=== PATIENT | female | born 1945 | race Caucasian/White ===

== ENCOUNTER → 2017-10-01 | Outpatient (CLI) | payer MEDICARE, OTHER ==
[2013-12-22 08:48] VITALS: BMI 30.9
[~2017-10-01] MED LIST: ALPR-448 PO; AMOX-559 PO; CHOL100059 PO; CHOL4PAC14 PO; CYC10 PO; DOCU-202 PO; FLU45SYR17 IM; HYDR-385 PO; HYDR-4309 PO; IBU600 PO; LOR5 PO; PER PO; PNEI IM; PNEU0.5D3 IM; VARI50KI IM; ZOST19404 SQ
[2017-10-01 11:33] LABS: PLATELET COUNT, AUTOMATED 236 K/uL (150-450)
[2017-10-01 11:40] LABS: LDL CHOLESTEROL 120 mg/dl
== END ==
LOC: LAB 10:49
PROVIDERS: ATTEND Nurse Practitioner Family
DX: R53.83 Other fatigue (principal); R10.11 Right upper quadrant pain; E55.9 Vitamin D deficiency, unspecified; R73.01 Impaired fasting glucose; E78.00 Pure hypercholesterolemia, unspecified
CPT/HCPCS: 36415; 82040; 82150; 82247; 82306; 82310; 82374; 82435; 82465; 82565; 82947; 83036; 83690; 83718; 84075; 84132; 84155; 84295; 84443; 84450; 84460; 84478; 84520; 85025

== ENCOUNTER → 2017-11-05 | Outpatient (CLI) | payer MEDICARE, OTHER ==
[2013-12-22 08:48] VITALS: BMI 30.9
--- NOTE | 2017-11-05 13:52 | RADIOLOGY IMAGING REPORT ---
FACILITY: [facility] PATIENT NAME: Jackeline Pavon : 1945 MR: [id number] V: [id number] EXAM DATE: ORDERING PHYSICIAN: QIAN SEALS TECHNOLOGIST: [place] [facility] [place]eline Pav[place] : 1945 Visit/Account:[id number] Date of Sevice: 11/05/2017 THYROID Indication: Evaluate thyroid nodules. Comparison study: May 18, 2011. Procedure: There has been satisfactory grayscale ultrasonic evaluation of the thyroid gland. Findings: Right lobe: The right lobe has diffusely heterogeneous echotexture. It has lobulated surface contour . Finding a discrete mass is difficult to discern but it does appear that medially there is a 1.4 x 1.1 x 0.6 cm nodule. Left lobe: The left lobe also has diffusely heterogeneous echotexture. There are 2 nodular lesions t hat appear to have grown when compared to the previous study. The more lateral lesion measures 1.3 x 1.0 x 0.6 cm in size and the more medial lesion measures 1.6 x 0.9 x 1.0 cm in size. The larger les ion would be accessible to percutaneous FNA. IMPRESSION: 1. In the lower portion of the left lobe of the thyroid gland there has been growth of previously no deanne small nodules. In the medial aspect of the lower lobe there is a nodule that measures 1.6 x 0.9 x 1.0 cm in size. Report Dictated By: Rahul Stearns MD at 11/05/2017 1:44 PM Report E-Signed By: Rahul Stearns MD at 11/05/2017 1:48 PM WSN:[email or web address]
== END ==
LOC: US 02:42
PROVIDERS: ATTEND Nurse Practitioner Family
DX: E04.1 Nontoxic single thyroid nodule (principal)
CPT/HCPCS: 76536

== ENCOUNTER → 2017-11-15 | Outpatient (CLI) | payer MEDICARE, OTHER ==
[2013-12-22 08:48] VITALS: BMI 30.9
--- NOTE | 2017-11-16 07:54 | RADIOLOGY IMAGING REPORT ---
[place] [facility] [place] Jackeline Pavon : 1945 MR: [id number] V: [id number] EXAM DATE: ORDERING PHYSICIAN: QIAN SEALS TECHNOLOGIST: Location: [facility] Patient: Jackeline Pavon : 1945 Visit/Account:[id number] Date of Sevice: 11/15/2017 DEXA Scan Clinical history: Osteopenia. Comparison: DEXA scan from 08/07/1999. LUMBAR SPINE: The bone mineral density (BMD) measured from L1-L4 correlates with a Z-score 0.0 and a T-score of -0 .5 which is Normal as defined by the World Health Organization. The corresponding risk of fracture i n the lumbar spine is Not increased compared with a young adult reference population. This value has decreased by 8.8 % since the prior study. More than 5% change is considered significant. HIP: Bone mineral density (BMD) measured in the left femoral neck region correlates with a Z-score -0.5 an d a T-score of -1.4 which is osteopenia as defined by the World Health Organization. The correspon ding risk of fracture in the hip is increased compared with a young adult reference population. The t otal hip value has decreased by 17.1 % since the prior study. More than 5% change is considered sign ificant. Bone mineral density (BMD) measured in the Femoral Neck region measures 0.843 g/cm2. IMPRESSION: 1. Lumbar spine: Normal. There has been decrease in the bone mineral density since the previous exa m. 2. Left femoral neck region: Osteopenia. There has been decrease in the bone mineral density of the total hip since the previous exam. 3. Femoral Neck: Bone Mineral Density is 0.843 g/cm2 The next DEXA scan of this patient should include the following sites: L1-L4 and the left hip. FRAX? WHO Fracture Risk Assessment Tool link: <http://www.shef.ac.uk/FRAX/tool.jsp?locationValue=9> PLEASE NOTE: 1) The World Health Organization defines low BMD as follows: T-score Normal > -1 Osteopenia < -1 and > -2.5 Osteoporosis < -2.5 without fractures Established osteoporosis < -2.5 with fractures 2) In general, you may wish to consider: Diagnosis Treatment Follow-up DEXA Normal BMD Prevention 2-3 years Osteopenia Prevention/therapy 1-2 years Osteoporosis Therapy Yearly 3) Fracture risk estimated from the T-score is more accurate for vertebral fractures (often spontane ous) than for hip fractures. Report Dictated By: Paramjit Guadarrama at 11/16/2017 7:47 AM Report E-Signed By: Paramjit Guadarrama at 11/16/2017 7:50 AM WSN:[email or web address]
--- NOTE | 2017-11-16 11:20 | RADIOLOGY IMAGING REPORT ---
FACILITY: [facility] PATIENT NAME: ODESSA JACOBS : [id number] MR: [id number] V: [id number] EXAM DATE: [id number] ORDERING PHYSICIAN: QIAN SEALS TECHNOLOGIST: Estefania Wheeler PROCEDURE:BILATERAL DIGITAL SCREENING MAMMOGRAM WITH CAD ASSISTED INTERPRETATION & 3D TOMOSYNTHESIS COMPARISON:Prior mammograms 11/11/16, 10/30/15, 10/26/14. INDICATIONS:Screening FINDINGS: There is a small cluster of microcalcifications in the 6 o'clock position Right breast posterior depth. This cluster is not significantly changed compared to 2017 but more prominent than older mammograms and I would suggest further evaluation with magnification views. Otherwise, no dominant mass in either breast. No suspicious microcalcifications on the Left. DIAGNOSTIC CATEGORY 0--INCOMPLETE: NEED ADDITIONAL IMAGING EVALUATION. RECOMMENDATIONS: ADDITIONAL MAMMOGRAPHIC VIEWS REQUIRED: RIGHT BREAST. IMPRESSION: BIRADS 0: Incomplete. Recommend the patient return for Spot magnification views of the cluster of microcalcifications in the right breast 6 o'clock position in the CC and ML projections. Dictated by: Joe Howard M.D. on 11/16/2017 at 10:49 Transcribed by: JAX on 11/16/2017 at 10:58 Approved by: Joe Howard M.D. on 11/16/2017 at 11:19 [facility]
== END ==
LOC: MAMO 00:35
PROVIDERS: ATTEND Nurse Practitioner Family
DX: Z12.31 Encounter for screening mammogram for malignant neoplasm of breast (principal); M85.88 Other specified disorders of bone density and structure, other site; R92.1 Mammographic calcification found on diagnostic imaging of breast
CPT/HCPCS: 77063; 77067; 77080

== ENCOUNTER → 2017-12-08 | Outpatient (CLI) | payer MEDICARE, OTHER ==
[2013-12-22 08:48] VITALS: BMI 30.9
--- NOTE | 2017-12-09 15:03 | RADIOLOGY IMAGING REPORT ---
FACILITY: [facility] PATIENT NAME: ODESSA JACOBS : [id number] MR: [id number] V: [id number] EXAM DATE: [id number] ORDERING PHYSICIAN: QIAN SEALS TECHNOLOGIST: Reva Kate PROCEDURE:RIGHT DIGITAL DIAGNOSTIC MAMMOGRAM WITH CAD ASSISTED INTERPRETATION COMPARISON:Prior mammograms 11/15/17, 11/11/16, 11/07/15, 10/30/15, 10/26/14, 10/25/13, 08/30/12. INDICATIONS:FURTHER EVAL FINDINGS: Again noted is a small grouping of calcifications in the approximate 6 o'clock position of the Right breast. These appear relatively unchanged when compared to the 2017 mammograms. These do appear to be faintly visible on prior mammograms dating back to 2014 although seamed better advantage on the current examination. The difference in imaging technology between the non 3D breast Tomographic images and the current 3D breast Tomographic images may account for this difference. They appear to be in a loonier orientation and may be vascular in etiology. A 6 month follow-up diagnostic Right mammogram is recommended to evaluate for totally comparing the same imaging technology. DIAGNOSTIC CATEGORY 3--PROBABLY BENIGN FINDING. RECOMMENDATIONS: SIX MONTH FOLLOW-UP DIAGNOSTIC MAMMOGRAM: RIGHT BREAST. IMPRESSION: BIRADS 3: Probably benign finding. A 6 month follow-up Right mammogram is recommended as described above. Dictated by: Priscilla Garcia M.D. on 12/08/2017 at 11:10 Transcribed by: JAX on 12/08/2017 at 11:30 Approved by: Priscilla Garcia M.D. on 12/09/2017 at 15:01 [facility]
== END ==
LOC: MAMO 02:25
PROVIDERS: ATTEND Nurse Practitioner Family
DX: R92.2 Inconclusive mammogram (principal)
CPT/HCPCS: 77065

== ENCOUNTER → 2018-01-27 | Outpatient (CLI) | payer MEDICARE, OTHER ==
[2013-12-22 08:48] VITALS: BMI 30.9
--- NOTE | 2018-01-27 16:40 | RADIOLOGY IMAGING REPORT ---
FACILITY: [facility] PATIENT NAME: Jackeline Pavon : 1945 MR: [id number] V: [id number] EXAM DATE: ORDERING PHYSICIAN: QIAN SEALS TECHNOLOGIST: Location: [facility] [place] Patient: Jackeline Pavon : 1945 Visit/Account:[id number] Date of Sevice: 01/27/2018 Exam type: CERVICAL SPINE MIN 4 VIEW History: Neck pain and dizziness with extension Comparison: March 22, 2009. Findings: Five views of the cervical spine demonstrate fusion of C5-6 and seven similar to the prior study. Th ere is moderate disc space narrowing at C3-4 and C4-5 also similar to the prior study assessment mild foraminal narrowing on the right at C3-4 and moderate foraminal narrowing on the right at C4-5 and C 5-6 secondary to uncovertebral spurring. There is moderate foraminal narrowing on the left at C3-4 C 4-5 and mild foraminal narrowing on the left at C5-6 secondary to uncovertebral spurring. There is n o evidence of acute fractures or subluxations. There is no evidence of prevertebral soft tissue swel ling. IMPRESSION: 1. Fusion of the C5-C6 and C7 vertebral bodies appear similar to the prior study. Extensive spondylotic changes as described Report Dictated By: Priscilla Garcia MD at 01/27/2018 4:34 PM Report E-Signed By: Priscilla Garcia MD at 01/27/2018 4:37 PM WSN:[email or web address]
== END ==
LOC: RAD 15:21
PROVIDERS: ATTEND Nurse Practitioner Family
DX: M54.2 Cervicalgia (principal); M43.22 Fusion of spine, cervical region; M47.812 Spondylosis without myelopathy or radiculopathy, cervical region
CPT/HCPCS: 72050

== ENCOUNTER → 2018-04-14 | Outpatient (CLI) | payer MEDICARE, OTHER ==
[2013-12-22 08:48] VITALS: BMI 30.9
[~2018-04-14] MED LIST changes: +FLU180SY11 IM; -HYDR-4309 PO; +HYDR-653 PO
[2018-04-14 08:51] LABS: INR 0.88
== END ==
LOC: LAB 07:56
PROVIDERS: ATTEND Nurse Practitioner Family
DX: E04.1 Nontoxic single thyroid nodule (principal); R73.01 Impaired fasting glucose
CPT/HCPCS: 36415; 83036; 85049; 85610; 85730

== ENCOUNTER → 2018-04-15 | Outpatient (CLI) | payer MEDICARE, OTHER ==
[2013-12-22 08:48] VITALS: BMI 30.9
--- NOTE | 2018-04-15 15:24 | RADIOLOGY IMAGING REPORT ---
FACILITY: [facility] PATIENT NAME: Jackeline Pavon : 1945 MR: [id number] V: [id number] EXAM DATE: ORDERING PHYSICIAN: QIAN SEALS TECHNOLOGIST: [place] [facility] [place]: Jackeline Pavon : 1945 Visit/Account:[id number] Date of Sevice: 04/15/2018 Exam type: THYROID BIOPSY FINE NEEDLE ASP History: thyroid nodule Comparison: November 05, 2017. Findings: Informed consent was obtained. The left-sided the patient's neck was prepped and draped usual steril e fashion. Local anesthesia was a copy with 1% lidocaine. Under sonographic guidance four 25-gauge FNA biopsies were obtained through the inferior left thyroid nodule. The samples were given to the p athology technologist for processing. The procedure was accomplished without apparent complication. IMPRESSION: 1. Successful sonographically guided left thyroid nodule Report Dictated By: Priscilla Garcia MD at 04/15/2018 3:18 PM Report E-Signed By: Priscilla Garcia MD at 04/15/2018 3:20 PM WSN:[email or web address]
== END ==
LOC: US 02:26
PROVIDERS: ATTEND Nurse Practitioner Family
DX: E04.1 Nontoxic single thyroid nodule (principal)
CPT/HCPCS: 10022; 76942; 88104; 88172

== ENCOUNTER → 2018-04-29 | Outpatient (CLI) | payer MEDICARE, OTHER ==
[2013-12-22 08:48] VITALS: BMI 30.9
[~2018-04-29] MED LIST changes: +META800T18 PO
[2018-04-29 11:11] LABS: PLATELET COUNT, AUTOMATED 238 K/uL (150-450)
== END ==
LOC: LAB 10:42
PROVIDERS: ATTEND Nurse Practitioner Primary Care
DX: R10.32 Left lower quadrant pain (principal)
CPT/HCPCS: 36415; 81001; 82040; 82247; 82310; 82374; 82435; 82565; 82947; 84075; 84132; 84155; 84295; 84450; 84460; 84520; 85025

== ENCOUNTER → 2018-06-08 | Outpatient (CLI) | payer MEDICARE, OTHER ==
[2013-12-22 08:48] VITALS: BMI 30.9
[~2018-06-08] MED LIST changes: +MECL25TA9 PO; +METH4TAB66 PO
--- NOTE | 2018-06-08 15:05 | RADIOLOGY IMAGING REPORT ---
FACILITY: [facility] [place] PATIENT NAME: ODESSA JACOBS : [id number] MR: [id number] V: [id number] EXAM DATE: ORDERING PHYSICIAN: QIAN SEALS TECHNOLOGIST: Estefania Wheeler PROCEDURE:RIGHT DIGITAL DIAGNOSTIC MAMMOGRAM WITH CAD ASSISTED INTERPRETATION & 3D TOMOSYNTHESIS COMPARISON:Prior mammograms 12/08/17, 11/15/17, 11/11/16, 11/07/15, 10/30/15, 10/26/14, 08/19/06. INDICATIONS:SIX MONTH FOLLOW UP FINDINGS: Scattered fibroglandular densities are seen throughout the breasts. The small grouping of calcifications in the 6 o'clock position of the Right breast posterior 1/3 have remained stable when compared to the prior mammograms dating back to 2016. These appear to be in a linier orientation and maybe vascular in etiology. DIAGNOSTIC CATEGORY 3--PROBABLY BENIGN FINDING. RECOMMENDATIONS: SIX MONTH FOLLOW-UP SCREENING MAMMOGRAM: BILATERAL BREASTS. IMPRESSION: BIRADS 3: Probably benign finding. A 6 month follow-up bilateral screening mammogram is recommended at which time the patient will be due for her annual mammogram. Dictated by: Priscilla Garcia M.D. on 06/08/2018 at 13:40 Transcribed by: JAX on 06/08/2018 at 14:02 Approved by: Priscilla Garcia M.D. on 06/08/2018 at 15:04 [facility]
== END ==
LOC: MAMO 00:36
PROVIDERS: ATTEND Nurse Practitioner Family
DX: R92.1 Mammographic calcification found on diagnostic imaging of breast (principal)
CPT/HCPCS: 77061; 77065

== ENCOUNTER → 2018-07-25 | Outpatient (CLI) | payer MEDICARE, OTHER ==
[2013-12-22 08:48] VITALS: BMI 30.9
[2018-07-25 13:56] LABS: PLATELET COUNT, AUTOMATED 289 K/uL (150-450)
== END ==
LOC: LAB 13:42
PROVIDERS: ATTEND Nurse Practitioner Family
DX: R10.9 Unspecified abdominal pain (principal)
CPT/HCPCS: 36415; 85025

== ENCOUNTER → 2018-08-05 | Outpatient (CLI) | payer MEDICARE, OTHER ==
[2013-12-22 08:48] VITALS: BMI 30.9
== END ==
LOC: LAB 13:01
PROVIDERS: ATTEND Nurse Practitioner Family
DX: M54.9 Dorsalgia, unspecified (principal); R10.32 Left lower quadrant pain
CPT/HCPCS: 36415; 82310; 82374; 82435; 82565; 82947; 84132; 84295; 84520

== ENCOUNTER → 2018-08-08 | Outpatient (CLI) | payer MEDICARE, OTHER ==
[2013-12-22 08:48] VITALS: BMI 30.9
[~2018-08-08] MED LIST changes: +IOPAMIDOL 76% 150 ML INFUS BTL 150 ML ONE
--- NOTE | 2018-08-08 11:20 | RADIOLOGY IMAGING REPORT ---
FACILITY: [facility] [place] PATIENT NAME: Jackeline Pavon : 1945 MR: [id number] V: [id number] EXAM DATE: ORDERING PHYSICIAN: QIAN SEALS TECHNOLOGIST: [place] [facility] [place] : 1945 Visit/Account:[id number] Date of Sevice: 08/08/2018 CT ABDOMEN PELVIS W & W/O CONTRAST HISTORY: Left lower quad/and left flank pain TECHNIQUE: Axial images acquired through the abdomen/pelvis both with and without IV contrast.. Frances nal and sagittal reformatting also performed.Dose Lowering Technique One of the following dose optimization techniques was utilized in the performance of this exam: Autom ated exposure control; adjustment of the mA and/or kV according to the patient's size; or use of an i terative reconstruction technique. Specific details can be referenced in the facility's radiology C T exam operational policy. CONTRAST: 75 mL Isovue-370 COMPARISON: None. FINDINGS: Visualized lung bases: Negative. Hepatobiliary: Postsurgical changes from a cholecystectomy Spleen: Negative. Adrenals: Negative. Pancreas: Negative. Kidneys ureters and bladder: There two nonobstructing calculi lower pole the right kidney measuring u p to 2 mm. There is one nonobstructing calculus lower pole of the left kidney measuring 2 mm. There appear to be parapelvic cysts versus hydronephrosis in both kidneys. The ureters are not dilated . Genitalia: There is a 3.6 x 3 cm anterior uterine mass likely a fibroid GI: There is colonic diverticulosis although no CT evidence of acute diverticulitis. Small hiatal h ernia present Vessels/spaces/nodes: There mild atherosclerotic calcifications of the abdominal aorta and branch ve ssels Bones/soft tissues: There is a 5.7 x 2.1 x 5.4 cm intramuscular lipoma in the left internal oblique muscle. There is moderate disc space narrowing at L5-S1 with moderate degenerative facet joint doherty ges. There is a grade 1 anterior listhesis of L4 with respect L5 which appears to be secondary to bi lateral pars defects at L4. There is an old appearing deformity of the anterior right iliac crest Additional findings: None pertinent. IMPRESSION: There is nonobstructing nephrolithiasis bilaterally There appear to be parapelvic cysts versus hydronephrosis in both kidneys. The ureters are not dilat ed. 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
== END ==
LOC: CT 01:06
PROVIDERS: ATTEND Nurse Practitioner Family
DX: N20.0 Calculus of kidney (principal); K44.9 Diaphragmatic hernia without obstruction or gangrene; D17.9 Benign lipomatous neoplasm, unspecified; K57.30 Diverticulosis of large intestine without perforation or abscess without bleeding
CPT/HCPCS: Q9967

== ENCOUNTER → 2018-08-17 | Outpatient (CLI) | payer MEDICARE, OTHER ==
[2013-12-22 08:48] VITALS: BMI 30.9
[~2018-08-17] MED LIST changes: -IOPAMIDOL 76% 150 ML INFUS BTL 150 ML ONE
--- NOTE | 2018-08-17 16:03 | RADIOLOGY IMAGING REPORT ---
FACILITY: [facility] [place] PATIENT NAME: Jackeline Pavon : 1945 MR: [id number] V: [id number] EXAM DATE: ORDERING PHYSICIAN: QIAN SEALS TECHNOLOGIST: Location: [facility] Patient: Jackeline Pavon : 1945 Visit/Account:[id number] Date of Sevice: 08/17/2018 KIDNEYS EXAMINATION: Renal ultrasound. History: Right kidney stones, cysts versus hydro- COMPARISON STUDIES: FINDINGS: Kidneys: Right kidney- 11.2 x 4.5 x 4.2 cm Left kidney- 10.7 x 5.1 x 5.6 cm Uniform and symmetric blood flow in each kidney by Doppler ultrasound. Hydronephrosis: none There multiple parapelvic cysts in both kidneys. The largest on the right measures 2.4 centers in di ameter and the largest on the left measures 3.6 cm in diameter. Resistive index on the right and the left 0.68 Bladder: Prevoid volume 116 mL. Post void residual 78 mL. Bilateral ureteral jets are present Abdominal aorta and IVC: Aorta and IVC are patent by Doppler ultrasound. IMPRESSION: There multiple parapelvic cysts seen in both kidneys Report Dictated By: Priscilla Garcia MD at 08/17/2018 3:56 PM Report E-Signed By: Priscilla Garcia MD at 08/17/2018 3:58 PM WSN:[email or web address]
== END ==
LOC: US 00:43
PROVIDERS: ATTEND Nurse Practitioner Family
DX: N28.1 Cyst of kidney, acquired (principal)
CPT/HCPCS: 76705

== ENCOUNTER 2018-10-11 10:13 | Emergency (ER) | payer MEDICARE, OTHER ==
[2013-12-22 08:48] VITALS: Wt 102.1 kg
[2018-10-11 10:17] VITALS: BP 148/79
--- NOTE | 2018-10-11 10:46 | ER Report ---
History and Physical Time Seen By MD: 10:44 Hx. of Stated Complaint: pt states feeling like there was a "hardness" under skin wednesday, since then progressively more red and irritated. Purulent discharge starting today HPI/ROS CHIEF COMPLAINT: Neck mass HISTORY OF PRESENT ILLNESS: Patient is a 73-year-old female who presents to the emergency department for evaluation of suspected infected abscess to the left posterior aspect of her neck. She states she's had a lump there for some time is currently undergoing some physical therapy that involves her neck and noted over the past few days increased pain and swelling and redness. She denies any fevers or chills she denies any other systemic symptoms.She is states that she is "prediabetic" but does not take any diabetic medications. Allergies: Coded Allergies: bismuth subsalicylate (Verified Allergy, Unknown, RASH, 10/11/18) fluticasone (Unverified Allergy, Unknown, Unknown, 10/11/18) iodine (Verified Allergy, Unknown, 10/11/18) Uncoded Allergies: mussels (Allergy, Mild, Nausea, 12/11/13) oysters (Allergy, Mild, Nausea, 12/11/13) Home Meds Active Scripts Hydrocodone Bit/Acetaminophen (HYDROCODON-ACETAMINOPHEN 5-325) 1 Each Tablet, 1 EACH PO Q4H for PAIN, #12 TAB 0 Refills Prov:PIPPA JOINER MD 10/11/18 Ondansetron Hcl (ZOFRAN) 4 Mg Tablet, 4 MG PO Q8H for Nausea, #15 TAB 0 Refills Prov:PIPPA JOINER MD 10/11/18 Sulfamethoxazole/Trimet 800-160 Mg Tab (BACTRIM DS TABLET) 1 Each Tablet, 2 TAB PO BID, #20 MG 0 Refills Prov:PIPPA JOINER MD 10/11/18 Discontinued Scripts Meclizine Hcl (MECLIZINE HCL) 25 Mg Tablet, 0.5-1 TAB PO BID PRN for DIZZINESS, #10 TAB 0 Refills Prov:STEVE MIX DNP, MANAGER UTILITIES-BC 05/23/18 Varicella-Zoster Ge/As01b/Pf (Shingrix Vial Kit) 50 Mcg/0.5 Ml Kit, 0.5 ML IM ONCE, #1 EACH 1 Refill Prov:QIAN SEALS APRN MANAGER UTILITIES-C 10/01/17 Past Medical/Surgical History Noncontributory towards this chief complaint Hx Smoking: No Smoking Status: Former Smoker Exposure to Second Hand Smoke?: No Constitutional Vital Sign - Last 24 Hours 10/11/18 10:17 Temp 98.1 Pulse 82 Resp 16 B/P (MAP) 148/79 Pulse Ox 93 Physical Exam General appearance: Alert no distress. Examination of the skin reveals on the left posterior aspect of the neck a large approximately 2 cm in diameter swelling with localized erythema. The area is expressing small amount of purulent discharge. There is no extension of erythema much beyond the border of what is suspected to be an abscess Medical Decision Making ED Course/Re-evaluation ED Course 10/11/2018 10:45:48 am at this time will be a field block with local anesthetic followed by incision and drainage of abscess followed by packing of the wound and short course of oral antibiotics and pain medication. Procedure: Abscess drainage. The patient's abscess was located on the left lower neck. I obtained verbal consent from the patient to drain the abscess who was informed about the possibility of bleeding and pain. The abscess was incised with 11 blade aching incision approximately 1.5 cm and a large amount of purulent drainage was expressed. I irrigated the wound and placed possibly 12 inches of sterile packing. The patient tolerated the procedure well. The procedure was performed by myself. Decision to Disposition Date: Oct 11, 2018 Decision to Disposition Time: 11:01 Depart Departure Latest Vital Signs Vital Signs Date Time Temp Pulse Resp B/P (MAP) Pulse Ox O2 Delivery O2 Flow Rate FiO2 10/11/18 10:17 98.1 82 16 148/79 93 Impression: Primary Impression: Encounter for incision and drainage procedure Condition: Improved Disposition: HOME OR SELF-CARE Referrals: QIAN SEALS APRN MANAGER UTILITIES-C (PCP) New Scripts Hydrocodone Bit/Acetaminophen (HYDROCODON-ACETAMINOPHEN 5-325) 1 Each Tablet 1 EACH PO Q4H for PAIN, #12 TAB 0 Refills Prov: PIPPA JOINER MD 10/11/18 Ondansetron Hcl (ZOFRAN) 4 Mg Tablet 4 MG PO Q8H for Nausea, #15 TAB 0 Refills Prov: PIPPA JOINER MD 10/11/18 Sulfamethoxazole/Trimet 800-160 Mg Tab (BACTRIM DS TABLET) 1 Each Tablet 2 TAB PO BID, #20 MG 0 Refills Prov: PIPPA JOINER MD 10/11/18 Patient Instructions: Abscess Incision and Drainage (GEN) Additional Instructions: Return to the emergency department in 48 hours for wound recheck and possible change of packing removal of packing. Take your antibiotics as directed. Return to the emergency department if he developed fever of 101.4 or higher, worsening pain, worsening redness or purulent discharge from the wound. PIPPA JOINER MD Oct 11, 2018 10:46
[2018-10-11] MEDS ORDERED: ONDA4TAB97 PO (11:04)
[2018-10-11] MEDS ORDERED: LOR5/325 PO (11:04)
[2018-10-11] MEDS ORDERED: SULF-198 PO (11:04)
== END 2018-10-11 11:34 | disposition home or self-care (01) ==
LOC: ER 10:42
DX: L02.11 Cutaneous abscess of neck (principal)
CPT/HCPCS: 99282

== ENCOUNTER 2018-10-13 07:28 | Emergency (ER) | payer MEDICARE, OTHER ==
[2013-12-22 08:48] VITALS: Wt 102.1 kg
[~2018-10-13 07:28] MED LIST changes: +LOR5/325 PO; +ONDA4TAB97 PO; +SULF-198 PO
[2018-10-13 07:32] VITALS: BP 116/76
--- NOTE | 2018-10-13 07:47 | ER Report ---
History and Physical Time Seen By : 07:35 Hx. of Stated Complaint: ptpresents with a cyst that she had drained on Wednesday. Pt here for a recheck, drainage continues. Has been taking antibiotics, and has some itching HPI/ROS CHIEF COMPLAINT: Wound check HISTORY OF PRESENT ILLNESS: Otherwise healthy Vickyu female comes emergency Department today for a wound check. Patient was seen here 2 days ago with an obvious cutaneous abscess on her left superior scapular area just distal to the trapezial area on the left side this was incisioned and drained iodoform packing was placed she's here to have the packing replaced in for evaluation. Patient has no additional complaints REVIEW OF SYSTEMS: Respiratory: No cough, no dyspnea. Cardiovascular: No chest pain, no palpitations. Gastrointestinal: No vomiting, no abdominal pain. Musculoskeletal: No back pain. Remainder of the 14 system rev: Yes Allergies: Coded Allergies: bismuth subsalicylate (Verified Allergy, Unknown, RASH, 10/11/18) fluticasone (Unverified Allergy, Unknown, Unknown, 10/11/18) iodine (Verified Allergy, Unknown, 10/11/18) Uncoded Allergies: mussels (Allergy, Mild, Nausea, 12/11/13) oysters (Allergy, Mild, Nausea, 12/11/13) Home Meds Active Scripts Hydrocodone Bit/Acetaminophen (HYDROCODON-ACETAMINOPHEN 5-325) 1 Each Tablet, 1 EACH PO Q4H for PAIN, #12 TAB 0 Refills Prov:PIPPA JOINER MD 10/11/18 Ondansetron Hcl (ZOFRAN) 4 Mg Tablet, 4 MG PO Q8H for Nausea, #15 TAB 0 Refills Prov:PIPPA JOINER MD 10/11/18 Sulfamethoxazole/Trimet 800-160 Mg Tab (BACTRIM DS TABLET) 1 Each Tablet, 2 TAB PO BID, #20 MG 0 Refills Prov:PIPPA JOINER MD 10/11/18 Discontinued Scripts Meclizine Hcl (MECLIZINE HCL) 25 Mg Tablet, 0.5-1 TAB PO BID PRN for DIZZINESS, #10 TAB 0 Refills Prov:STEVE MIX DNP, STITCH RUBBER-BC 05/23/18 Varicella-Zoster Ge/As01b/Pf (Shingrix Vial Kit) 50 Mcg/0.5 Ml Kit, 0.5 ML IM ONCE, #1 EACH 1 Refill Prov:QIAN SEALS APRN STITCH RUBBER-C 10/01/17 Reviewed Nurses Notes: Yes Old Medical Records Reviewed: Yes Hx Smoking: No Smoking Status: Former Smoker Exposure to Second Hand Smoke?: No Constitutional Vital Sign - Last 24 Hours 10/13/18 07:32 Temp 97.9 Pulse 73 Resp 20 Pulse Ox 93 O2 Delivery Room Air Physical Exam General appearance: Alert no distress. Respiratory: Chest is non tender, lungs are clear to auscultation. Cardiac: Regular rate and rhythm [ ] Skin abscess examination patient has an obvious cutaneous abscess about 2-3 cm in diameter raised has about 20 cm of packing material which has been removed no external signs of cellulitic changes other than localized infectious process which has been of note mildly tender no obvious purulent drainage DIFFERENTIAL DIAGNOSIS: After history and physical exam differential diagnosis was considered for abscess evaluation repacking Medical Decision Making ED Course/Re-evaluation ED Course ED course medical decision making 73-year-old female comes here for evaluation of an abscess on her left superior scapular area Adena form was removed and packing was placed with quarter inch iodoform patient tolerated well patient will return to primary care and 48-72 hours for repacking and reevaluation she is currently on Bactrim we'll maintain that she is not medication time of procedure afterwards Procedural note iodoform was removed and Deformities placed sterile dressing was applied patient tolerated well Patient will follow with primary care for repeat packing and evaluation Decision to Disposition Date: Oct 13, 2018 Decision to Disposition Time: 07:46 Depart Departure Latest Vital Signs Vital Signs Date Time Temp Pulse Resp B/P (MAP) Pulse Ox O2 Delivery O2 Flow Rate FiO2 10/13/18 07:32 97.9 73 20 93 Room Air Impression: Primary Impression: Wound check, abscess Condition: Improved Disposition: HOME OR SELF-CARE Referrals: QIAN SEALS APRN STITCH RUBBER-C (PCP) 2 Days Patient Instructions: Abscess (ED) OPHELIA HERNANDEZ MD Oct 13, 2018 07:48
== END 2018-10-13 08:04 | disposition home or self-care (01) ==
LOC: ER 08:04
DX: Z48.00 Encounter for change or removal of nonsurgical wound dressing (principal)
CPT/HCPCS: 99281

== ENCOUNTER 2018-11-29 16:41 | Outpatient (RCR) | payer MEDICARE, OTHER ==
[2013-12-22 08:48] VITALS: BMI 30.9
--- NOTE | 2018-09-02 16:38 | PT INITIAL EVALUATION ---
MEDICAL DIAGNOSIS: Left hip pain, Low back pain, Bilateral knee pain TREATMENT DIAGNOSIS: Left hip pain, Low back pain, abdominal pain DATE OF ONSET: 09/02/18 SUBJECTIVE: Jackeline is a 73 year old female presenting to physical therapy following onset of L side, back and groin pain starting about 1 MO prior. Pt reports that the pain came on roughly after shoveling snow and that it has stayed present and got slightly worse over the last month. Pt recently had a CT revealing disk degeneration, L4 on L5 spondylitic changes, as well as a internal oblique intermuscular lipoma. Additionally, the CT revealed cysts on B kidneys, a uterine fibroid mass and colonic diverticulosis. Pt reports that her pain is typically less in the morning when she first wakes up at only a 1-2/10 and then throughout the day reaches her current pain of 5-6/10. Pt reports that pain is also increased with prolonged sitting and is slightly improved with R side-lying, rest, stretching and ibuprofen. Pt reports that she has a history of knee problems as well but that they are bothering her less at this time. REHAB PROBLEM LIST: Increased Pain Decreased ROM Decreased Endurance Decreased Function Decreased ADL's Decreased Mobility PREVIOUS MEDICAL HISTORY: See EMR OCCUPATION: Directs a senior choir group OBJECTIVE: ROM: Lumbar ROM: flexion: full with posterior pain, ext: moderate/severe restrictionw with posterior pain, L SB: severe restrictions with pain, R SB: moderate restrictions with pain, L rot: moderate restrictions with L side pain, R rot: full with posterior pain. Strength: Abdominal testing: unable to isolate deep abdominal muscles Palpation: Pt is tender to palpation on the L flank of the lumbar spine out to the side as well as along the L inguinal region and just above. Special Tests: Repeated Lumbar Motion: flexion: increased in back then increased in groin, ext: increased in back and then increased in groin, R SB: decreased in groin and back moved towards back more. ASSESSMENT: Pt shows signs and symptoms consistent with lumbar dysfunction resulting in nerve entrapment with possible additional L abdominal dysfunction secondary to lipoma presence. Physical therapy is indicated to address the above listed deficits to improve pt function with ADL's. Short Term Goals In 3 weeks pt will centralize pain to the spine only for improved function with ADL's. In 4 weeks pt will improve lumbar ROM to full for improved function with ADL's. In 6 weeks pt will decrease pain to <3/10 for improved function with ADL's. In 6 weeks pt will be compliant with abdominal strengthening HEP for maintained lumbar stability with ADL's. Patient's Goals Decrease pain in back, side and groin on L. PLAN: Patient to be seen for Manual Therapy/STM/MET Strengthening/condition Ice/Heat Range of Motion Spinal Stabilization Ultrasound Stretching Iontophoresis Neuromuscular Re-ed Closed Chain Program Electrical Stim Posture/Body mechanics Biofeedback Home Exercise Program Mech./Manual Traction Therapeutic Activities Pelvic Floor 3x/Week for 6 Weeks If you have any questions, comments, or concerns about this report or plan, please contact me at . Thank you, Melba Duggan, PT, DPT, CLT MTDD
--- NOTE | 2018-09-30 09:18 | PT PLAN OF CARE ---
Physician: Cristina Schmidt APRN [facility] Patient is being seen: 2x/Week Therapist: Melba Duggan, PT, DPT, CLT Medical Diagnosis: Left hip pain, Low back pain, Bilateral knee pain Treatment Diagnosis: Left hip pain, Low back pain, abdominal pain Date of Onset: 09/02/18 Date of Initial Evaluation: 09/02/18 Date patient was last seen: 09/29/18 Number of treatments: 10 Number of cancellations/No shows: 0 INTERVENTIONS: Manual Therapy/STM/MET Strengthening/condition Ice/Heat Range of Motion Spinal Stabilization Ultrasound Stretching Iontophoresis Neuromuscular Re-ed Closed Chain Program Electrical Stim Posture/Body mechanics Biofeedback Home Exercise Program Mech./Manual Traction Therapeutic Activities Pelvic Floor GOALS: In 3 weeks pt will centralize pain to the spine only for improved function with ADL's. MET In 4 weeks pt will improve lumbar ROM to full for improved function with ADL's. In Progress In 6 weeks pt will decrease pain to <3/10 for improved function with ADL's. MET In 6 weeks pt will be compliant with abdominal strengthening HEP for maintained lumbar stability with ADL's. In Progress PATIENT'S GOAL: Decrease pain in back, side and groin on L. Status of Patient's Goals: 2/4 MET Patient Compliance: Good Prognosis: Good Reasons for continuing therapy: Jackeline shows excellent centralization and reduction in both lumbar and cervical pain. Pt is compliant with HEP to maintain pain reduction status. With decreased cervical impingement pt is able to initiate strengthening of L RTC with weakness present in stabilizers and pain with resistance. Scapular mechanics show improvement though pt remains to have occasional onset of LBP with lat activation. Further PT to continue with pain reduction and stabilization and progress towards independent HEP for maintenance. ROM: Lumbar ROM: flexion: full with posterior pain, ext: mild restrictions with posterior pain, L SB: mild restrictions with pain, R SB: mild restrictions with pain, L rot: full, R rot: full. Cervical ROM: flex: full, ext: mild restrictions, R SB: 30 degrees with slight pn on R side, L SB: 30 degrees, R rot: 50 degrees, L rot: 46 degrees. Strength: Abdominal testing: unable to isolate deep abdominal muscles Shoulder MMT: R 5/5 in all directions, L ext: 4/5, flex: 5/5, ER: 4/5 with pain, IR: 4/5 with pain, abd: 4+/5 with pain If you have any questions, comments, or concerns about this report or plan, please contact me at . Thank you, Melba Duggan, PT, DPT, CLT MTDD
--- NOTE | 2018-11-30 13:51 | PT PLAN OF CARE ---
Physician: Cristina Schmidt APRN CHIEF HUMAN RESOURCES OFFICER-C Patient is being seen: 2x/week Therapist: Melba Duggan and Wesley Trinidad, PT, DPT Medical Diagnosis: Left hip pain, Low back pain, Bilateral knee pain Treatment Diagnosis: Left hip pain, Low back pain, abdominal pain Date of Onset: 09/02/18 Date of Initial Evaluation: 09/02/18 Date patient was last seen: 11/29/18 Number of treatments: 21 Number of cancellations/No shows: 0 INTERVENTIONS: Manual Therapy/STM/MET Strengthening/condition Ice/Heat Range of Motion Spinal Stabilization Ultrasound Stretching Iontophoresis Neuromuscular Re-ed Closed Chain Program Electrical Stim Posture/Body mechanics Biofeedback Home Exercise Program Mech./Manual Traction Therapeutic Activities Pelvic Floor GOALS: In 3 weeks pt will centralize pain to the spine only for improved function with ADL's. MET In 4 weeks pt will improve lumbar ROM to full for improved function with ADL's.MET In 6 weeks pt will decrease pain to <3/10 for improved function with ADL's. MET In 6 weeks pt will be compliant with abdominal strengthening HEP for maintained lumbar stability with ADL's. MET PATIENT'S GOAL: Decrease pain in back, side and groin on L. Status of Patient's Goals: 08/04 MET Patient Compliance: Good Prognosis: Good Reasons for continuing therapy: This is a discharge note for Jackeline. She reports that she is doing well. She reports that her low back is doing well and denies any pain. She reports that her neck and shoulder are doing well and denies any pain. She reports that she feels like she is independent with her home exercise program and how to prevent reoccurrences. She has progressed well throughout her PT sessions with increased trunk AROM in all directions in her cervical and lumbar spine with normalized end feels, abolished pain, abolished radiating pain, and returned to prior level of function. She reports that she feels independent with her program. She also reports that she feels like she will be able to prevent relapses or how to fix reoccurrences in the future. ROM: Lumbar ROM: flexion: full with posterior pain, ext: mild restrictions with posterior pain, L SB: mild restrictions with pain, R SB: mild restrictions with pain, L rot: full, R rot: full. Cervical ROM: flex: full, ext: mild restrictions, R SB: 30 degrees with slight pn on R side, L SB: 30 degrees, R rot: 50 degrees, L rot: 46 degrees. Strength: Abdominal testing: unable to isolate deep abdominal muscles Shoulder MMT: R 5/5 in all directions, L ext: 4+/5, flex: 5/5, ER: 4+/5 with no pain, IR: 4+/5 with no pain, abd: 4+/5 with no pain If you have any questions, comments, or concerns about this report or plan, please contact me at . Thank you, Wesley Trinidad, PT, DPT MTDD
== END 2018-11-29 18:00 | disposition home or self-care (01) ==
LOC: PT 16:41
PROVIDERS: ATTEND Nurse Practitioner Family
DX: M54.5 Low back pain (principal); M25.552 Pain in left hip; M25.561 Pain in right knee; M25.562 Pain in left knee
CPT/HCPCS: 97162

== ENCOUNTER → 2018-12-16 | Outpatient (CLI) | payer MEDICARE, OTHER ==
[2013-12-22 08:48] VITALS: BMI 30.9
--- NOTE | 2018-12-19 10:06 | RADIOLOGY IMAGING REPORT ---
FACILITY: [facility] PATIENT NAME: ODESSA JACOBS : [id number] MR: [id number]: [id number] EXAM DATE: ORDERING PHYSICIAN: QIAN SEALS TECHNOLOGIST: Reva Kate PROCEDURE: BILATERAL DIGITAL SCREENING MAMMOGRAM WITH CAD ASSISTED INTERPRETATION & 3D TOMOSYNTHESIS REASON FOR STUDY: Screening. FAMILY HISTORY OF BREAST CANCER: None. BREAST PROCEDURES/TREATMENTS: None. COMPARISON: 06/08/18, 12/08/17, 11/15/17, 11/11/16, 11/07/15, 10/30/15. VIEWS OBTAINED: Bilateral 2D & 3D full field CC & MLO projections. BREAST DENSITY: There are areas of fibroglandular density scattered throughout the breasts. MAMMOGRAM FINDINGS: The parenchymal pattern has remained stable allowing for difference in mammographic technique & patient positioning. IMPRESSION: BIRADS 1: Negative. DIAGNOSTIC CATEGORY 1--NEGATIVE. RECOMMENDATIONS: ROUTINE MAMMOGRAM AND CLINICAL EVALUATION. Dictated by: Priscilla Garcia M.D. on 12/16/2018 at 12:11 Transcribed by: JAX on 12/16/2018 at 15:17 Approved by: Priscilla Garcia M.D. on 12/19/2018 at 10:00 [facility]
== END ==
LOC: MAMO 04:24
PROVIDERS: ATTEND Nurse Practitioner Family
DX: Z12.31 Encounter for screening mammogram for malignant neoplasm of breast (principal)
CPT/HCPCS: 77063; 77067